=== PATIENT | female | born 1995 | race Caucasian/White ===

== ENCOUNTER 2017-09-09 10:27 | Emergency (ER) | payer SELFPAY ==
[~2017-09-09] VITALS: Ht 157.5 cm; Wt 92.0 kg
[2017-09-09 10:44] VITALS: Ht 157.5 cm; Wt 92.0 kg
[2017-09-09 11:55] LABS: BASOPHILS % 0.4 % (0.0-2.0); EOSINOPHILS # 0.1 10^3/ul (0.0-0.5); HEMATOCRIT 36.3 % (37.0-47.0); HEMOGLOBIN 11.3 g/dl (12.0-16.0); LYMPHOCYTES # 2.9 10^3/ul (0.8-2.9); LYMPHOCYTES % 31.2 % (15.0-51.0); MEAN CORPUSCULAR HEMOGLOBIN 24.3 pg (29.0-33.0); MEAN CORPUSCULAR HGB CONC 31.1 g/dl (32.0-37.0); MEAN CORPUSCULAR VOLUME 78.1 fl (82.0-101.0); MEAN PLATELET VOLUME 9.3 fl (7.4-10.4); MONOCYTES % 10.8 % (0.0-11.0); NEUTROPHIL # 5.3 10^3/ul (1.6-7.5); NEUTROPHILS % 56.3 % (39.0-77.0); PLATELET COUNT 410 10^3/UL (140-415); RED BLOOD COUNT 4.65 10^6/ul (4.20-5.40); RED CELL DISTRIBUTION WIDTH 15.7 % (11.5-14.5); WHITE BLOOD COUNT 9.3 10^3/ul (4.8-10.8)
--- NOTE | 2017-09-09 11:55 | RADRPT ---
PROCEDURE: US OB. CLINICAL INDICATION: Vaginal bleeding TECHNIQUE: Transabdominal and transvaginal views of the pelvis are available for review. COMPARISON: No prior studies are available for comparison. FINDINGS: There is a single intrauterine gestation with the crown-rump length measuring 0.3 cm, corresponding to a gestational age of 6 weeks and 0 days. The heart rate is noted at 117 bpm. Normal Doppler flow is identified in both ovaries. The right ovary measures 2.3 x 2.3 cm. The left ovary measures 3.2 x 2.3 x 2.5 cm. There is a 2.2 cm hemorrhagic corpus luteum cyst in the left ovary There is no free fluid. RPTAT: AA IMPRESSION: Single live intrauterine with an estimated gestational age of 6 weeks and 0 days, based on ultrasound measurements. bradycardia may be due to the early gestation. Close follow-up is recommended. NILDA based on ultrasound measurements is 05/05/2018. Left ovarian hemorrhagic corpus luteum cyst. .Ta Robert MD, MD Date Time Electronically viewed and signed by .Ta Robert MD, on 09/09/2017 11:54 .S/
[2017-09-09 12:29] LABS: ADD UMIC YES; UR ASCORBIC ACID NEGATIVE (NEGATIVE); UR BACTERIA FEW /HPF (NONE SEEN); UR BILIRUBIN (Dip) NEGATIVE (NEGATIVE); UR BLOOD (Dip) 1+ mg/dL (NEGATIVE); UR CLARITY SLIGHTLY CLOUDY (CLEAR); UR COLOR YELLOW (YELLOW); UR GLUCOSE (Dip) NEGATIVE (NEGATIVE); UR KETONES (Dip) NEGATIVE (NEGATIVE); UR LEUKOCYTE ESTERASE (Dip) NEGATIVE Leu/ul (NEGATIVE); UR NITRITE (Dip) NEGATIVE (NEGATIVE); UR RBC 5 /HPF (0-5); UR SPECIFIC GRAVITY (Dip) 1.021 (1.003-1.030); UR SQUAMOUS EPITHELIAL CELL FEW /HPF (FEW); UR TOTAL PROTEIN (Dip) NEGATIVE (NEGATIVE); UR UROBILINOGEN (Dip) NEGATIVE (NEGATIVE)
[2017-09-09] MEDS ORDERED: ACET325T33 PO (13:25)
--- NOTE | 2017-09-09 15:26 | ERD ---
ER Documentation Chief Complaint Date/Time DATE: 09/09/17 TIME: 15:24 Chief Complaint VAGINAL BLEEDING AND STATED SHE IS 5 WEEKS HPI 22-year-old female complaining of vaginal bleeding 2 days. Denies clots. Has mild suprapubic pain but does not have severe lateralized pain. G1 p.o. AO. Last normal menstrual period August 06, 2017. Is being seen at [facility] but has not had appointment prior to today's visit. Denies medical problems. NKDA. Denies surgical problems ROS All systems reviewed and are negative except as per history of present illness. Medications Home Meds Active Scripts Acetaminophen* (Tylenol*) 325 Mg Tablet, 1 TAB PO Q6 Y for PAIN AND OR ELEVATED TEMP, #20 TAB Prov:NIKIA IBARRA PA-C 09/09/17 PMhx/Soc Medical and Surgical Hx: pt denies Medical Hx, pt denies Surgical Hx Hx Alcohol Use: No Hx Substance Use: No Hx Tobacco Use: No Physical Exam Vitals Vital Signs Date Time Temp Pulse Resp B/P Pulse Ox O2 Delivery O2 Flow Rate FiO2 09/09/17 10:44 98.6 78 18 137/61 100 Physical Exam GENERAL: The patient is well-appearing, well-nourished, in no acute distress HEENT: Atraumatic. Conjunctivae are pink. Pupils equal, round, and reactive to light. There is no scleral icterus. Tympanic membranes clear bilaterally. Oropharynx clear. No nystagmus or photophobia. CHEST: Clear to auscultation bilaterally. There are no rales, wheezes or rhonchi. HEART: Regular rate and rhythm. No murmurs, clicks, rubs or gallops. No S3 or S4. ABDOMEN:Soft, nontender and nondistended. Good bowel sounds. No rebound or guarding. No gross peritonitis. No gross organomegaly or masses. Mild suprapubic tenderness. Result Diagram: 09/09/17 1146 Results 24 hrs Laboratory Tests Test 09/09/17 11:46 White Blood Count 9.310^3/ul Red Blood Count 4.6510^6/ul Hemoglobin 11.3g/dl Hematocrit 36.3% Mean Corpuscular Volume 78.1fl Mean Corpuscular Hemoglobin 24.3pg Mean Corpuscular Hemoglobin Concent 31.1g/dl Red Cell Distribution Width 15.7% Platelet Count 87691^3/UL Mean Platelet Volume 9.3fl Neutrophils % 56.3% Lymphocytes % 31.2% Monocytes % 10.8% Eosinophils % 1.0% Basophils % 0.4% Nucleated Red Blood Cells % 0.0/100WBC Neutrophils # 5.310^3/ul Lymphocytes # 2.910^3/ul Monocytes # 1.010^3/ul Eosinophils # 0.110^3/ul Basophils # 0.010^3/ul Nucleated Red Blood Cells # 0.010^3/ul Urine Color YELLOW Urine Clarity SLIGHTLY CLOUDY Urine pH 7.0 Urine Specific [place] 1.021 Urine Ketones NEGATIVEmg/dL Urine Nitrite NEGATIVEmg/dL Urine Bilirubin NEGATIVEmg/dL Urine Urobilinogen NEGATIVEmg/dL Urine Leukocyte Esterase NEGATIVELeu/ul Urine Microscopic RBC 5/HPF Urine Microscopic WBC 3/HPF Urine Squamous Epithelial Cells FEW/HPF Urine Bacteria FEW/HPF Urine Hemoglobin 1+mg/dL Urine Glucose NEGATIVEmg/dL Urine Total Protein NEGATIVEmg/dl Beta HCG, Quantitative 57654.0mIU/ml Procedures/MDM DIAGNOSTIC IMAGING REPORT Patient: ROSS ALBERT : 1995 Age: 22 Sex: F MR #: [id number] DOS: 09/09/17 1120 Ordering MD: YOSI IBARRA PA-C Location: [facility] Room/Bed: PROCEDURE: US OB. CLINICAL INDICATION: Vaginal bleeding TECHNIQUE: Transabdominal and transvaginal views of the pelvis are available for review. COMPARISON: No prior studies are available for comparison. FINDINGS: There is a single intrauterine gestation with the crown-rump length measuring 0.3 cm, corresponding to a gestational age of 6 weeks and 0 days. The heart rate is noted at 117 bpm. Normal Doppler flow is identified in both ovaries. The right ovary measures 2.3 x 2.3 cm. The left ovary measures 3.2 x 2.3 x 2.5 cm. There is a 2.2 cm hemorrhagic corpus luteum cyst in the left ovary There is no free fluid. RPTAT: AA IMPRESSION: Single live intrauterine with an estimated gestational age of 6 weeks and 0 days, based on ultrasound measurements. bradycardia may be due to the early gestation. Close follow-up is recommended. NILDA based on ultrasound measurements is 05/05/2018. Left ovarian hemorrhagic corpus luteum cyst. MDM: Patient's blood type is Rh+ patient does not require RhoGam injection. Patient's urine does not appear to be infected. Patient's hemoglobin is stable and vital signs are stable. I have low suspicion for hemorrhagic shock. IUP is seen on ultrasounds have low suspicion for ectopic . Patient is recommended to follow-up with OB office as previously recommended. Patient is told if symptoms change or worsen to return to the emergency room. All questions answered at discharge. Departure Diagnosis: Primary Impression: Threatened Condition: Stable Patient Instructions: Possible Miscarriage (Threatened ) Referrals: [facility] YOU HAVE RECEIVED A MEDICAL SCREENING EXAM AND THE RESULTS INDICATE THAT YOU DO NOT HAVE A CONDITION THAT REQUIRES URGENT TREATMENT IN THE EMERGENCY DEPARTMENT. FURTHER EVALUATION AND TREATMENT OF YOUR CONDITION CAN WAIT UNTIL YOU ARE SEEN IN YOUR DOCTORS OFFICE WITHIN THE NEXT 1-2 DAYS. IT IS YOUR RESPONSIBILITY TO MAKE AN APPOINTMENT FOR FOLOW-UP CARE. IF YOU HAVE A PRIMARY DOCTOR --you should call your primary doctor and schedule an appointment IF YOU DO NOT HAVE A PRIMARY DOCTOR YOU CAN CALL OUR PHYSICIAN REFERRAL HOTLINE AT IF YOU CAN NOT AFFORD TO SEE A PHYSICIAN YOU CAN CHOSE FROM THE FOLLOWING [facility] [address] [facility]. [facility] [address] [facility] [facility] [address] [facility]. [facility] [address] [facility]. [facility] [address] [facility]. [facility]. [address] Additional Instructions: FOLLOW UP WITH YOUR PRIMARY CARE PHYSICIAN TOMORROW.Return to this facility if you are not improving as expected. NIKIA IBARRA PA-C Sep 09, 2017 15:26
== END 2017-09-09 13:50 | disposition home or self-care (01) ==
LOC: FTE 10:27
DX: O20.0 Threatened abortion (principal); Z3A.01 Less than 8 weeks gestation of pregnancy
CPT/HCPCS: 36415; 76801; 76817; 81001; 84702; 85025; 86900; 86901

== ENCOUNTER 2017-11-17 14:53 | Outpatient (CLI) | payer MEDICAID ==
[~2017-11-17] VITALS: Ht 157.5 cm; Wt 91.2 kg
[~2017-11-17 14:53] MED LIST: ACET325T33 PO
[2017-11-17 15:49] VITALS: Ht 157.5 cm; Wt 91.2 kg
[2017-11-17 15:50] VITALS: RESP 18
--- NOTE | 2017-11-17 16:42 | RADRPT ---
PROCEDURE: Obstetrical ultrasound. CLINICAL INDICATION: , evaluation. Pelvic pain. TECHNIQUE: Transabdominal sonographic images of the uterus obtained after first trimester , greater than 14 weeks gestation. Single intrauterine gestation present. COMPARISON: US PELVIS 09/09/2017 FINDINGS: Single intrauterine gestation. There is a breech presentation. Measurements were made in order to determine age. The results are as follows: BPD = 16 weeks 3 day(s) HC = 16 weeks 3 day(s) AC = 16 weeks 0 day(s) FL = 16 weeks 2 day(s) CONSUELO = not measured, appears appropriate Heart rate = 154 beats per minute The placenta is posterior. There is no evidence for an abruption or placenta previa. Ovaries are not visualized. IMPRESSION: Single intrauterine gestation of approximately 16 weeks 2 days by ultrasound criteria. [place] estimated weight = 146 g; 9 percentile for gestational age of 16 weeks 6 days. RPTAT: AADD .Priyank Randle MD, MD Date Time Electronically viewed and signed by .Priyank Randle MD, on 11/17/2017 16:42 .B/
--- NOTE | 2017-11-19 09:25 | CONS ---
Date/Time of Note Date/Time of Note DATE: 11/19/17 TIME: 08:56 Consultation Date/Type/Reason Admit Date/Time November 17 2017 OB triage consult. This patient is a 22 years old , with estimated date of confinement of 11/2018 ,which make.s her 19 i/7 weeks Came to OB triage complaining of low movements. On examination ,she is a well developed ,well nourished woman , somewhat over weight, 91.2 kilogram. Abdomen is soft , non uterine tenderness or contractions. heart tonne is normal. Her general vital signs are within normal limites, with blood pressure of 110/ 678, pulse rate of 100,respiration rate of 19, and temperature of 98.0. Constitutional: No chills, No diaphoresis, No disoriented, No febrile, No improved, No no complaints, No other, No poor po, No requiring IVF, No requiring O2 Eyes: No discharge, No no complaints, No other, No pain, No redness, No visual change ENT: No bleeding, No congestion, No discharge, No dysphagia, No no complaints, No other, No pain, No sore throat Respiratory: No cough, No no complaints, No other, No pain, No pleuritic pain, No shortness of breath, No sputum, No wheezing Cardiovascular: No chest pain, No edema, No lightheadedness, No no complaints, No orthopenea, No other, No palpitations, No paroxysmal nocturnal dyspnea Gastrointestinal: No blood, No constipation, No decreased appetite, No diarrhea , No flatus, No nausea, No no complaints, No other, No pain, No passing stool, No vomiting Genitourinary: other (Due to lack of lower abdominal pain and any contraction , pelvic exam was not performed.), No bleeding, No discharge, No dysuria, No flank pain, No hematuria, No no complaints Musculoskeletal: No back pain, No bone/joint pain, No neck pain, No no complaints, No other, No restricted range of motion, No swelling Skin: No bruising, No erythema, No laceration, No no complaints, No other, No pruritis, No rash, No skin lesions Neurologic: No confusion, No dizziness, No focal-weakness, No headache, No no complaints, No other, No seizure, No syncope Additional Comments On ultrasound study: the result was; single viable intrauterine gestation in breech presentation, with heart rate of 156 beats per minute age approximally 16 weeks and 2 days by ultrasound and estimated weight of 146 g, which would be 90 percentile for gestational age of 16 week and 6 days. Disposition: These findings were discussed with the patient and she will continue her care in [facility], [place], operated by [facility]. ,. Social History Smoking Status: Never smoker Exam/Review of Systems Vital Signs Vitals Vital Signs Date Time Temp Pulse Resp B/P Pulse Ox O2 Delivery O2 Flow Rate FiO2 11/17/17 15:50 98.2 18 99 Room Air AD LEAL MD Nov 19, 2017 09:09
== END 2017-11-17 17:00 | disposition home or self-care (01) ==
LOC: OBT 14:53 → L-D 14:55 → OBT 17:00
PROVIDERS: ATTEND Obstetrics & Gynecology
DX: O36.8120 Decreased fetal movements, second trimester, not applicable or unspecified (principal); Z3A.16 16 weeks gestation of pregnancy
CPT/HCPCS: 76815; Z7500; G0463

== ENCOUNTER 2017-11-30 08:58 | Emergency (ER) | END 2017-12-03 11:25 | disposition left against medical advice (07) ==

== ENCOUNTER 2018-03-08 15:16 | Outpatient (CLI) | END 2018-03-08 20:32 | disposition home or self-care (01) ==

== ENCOUNTER 2018-04-18 13:47 | Outpatient (CLI) | END 2018-04-18 16:25 | disposition home or self-care (01) ==

== ENCOUNTER 2018-05-09 22:16 | Emergency (ER) | END 2018-05-10 00:57 | disposition home or self-care (01) ==